=== PATIENT | female | born 1950 | race Caucasian/White ===

== ENCOUNTER → 2018-03-24 | Outpatient (CLI) | payer MEDICARE, OTHER | LOC: M RAD 13:08 | DX: J33.9 Nasal polyp, unspecified (principal); J32.0 Chronic maxillary sinusitis | CPT/HCPCS: 70486 ==

== ENCOUNTER → 2018-06-01 | Outpatient (REF) | payer MEDICARE, OTHER ==
[~2018-06-01] MED LIST: AMLO10TA4 PO; CYCL10TA PO; LISI-538 PO; MULT1TAB10 PO; NORC7.5T35 PO; OMEP20CA3 PO
== END ==
LOC: M SFHCLERA 14:42
PROVIDERS: ATTEND Nurse Practitioner Family
DX: N30.01 Acute cystitis with hematuria (principal)
CPT/HCPCS: 81002; 87088; 87186; G0463

== ENCOUNTER → 2019-10-22 | Outpatient (CLI) | payer MEDICARE, OTHER ==
[~2019-10-22] MED LIST changes: -AMLO10TA4 PO; +AMLO10TA5 PO; +CYCL-707 PO; -CYCL10TA PO; +NORC1TAB8 PO; -NORC7.5T35 PO; +OMEP1CAP73 PO; -OMEP20CA3 PO
== END ==
LOC: M LABSMTC 11:48
PROVIDERS: ATTEND Family Medicine
DX: Z11.59 Encounter for screening for other viral diseases (principal); Z20.828 Contact with and (suspected) exposure to other viral communicable diseases

== ENCOUNTER → 2019-10-25 | Outpatient (REF) | payer MEDICARE, OTHER ==
[2019-10-25 16:46] LABS: HEMATOCRIT 34.5 % (36.0-47.0); HEMOGLOBIN 11.3 g/dl (12.0-15.5); MEAN CORPUSCULAR HEMOGLOBIN 31.7 pg (27.0-33.0); MEAN CORPUSCULAR HGB CONC 32.8 g/dl (32.0-36.5); MEAN CORPUSCULAR VOLUME 96.9 fl (80.0-96.0); PLATELET COUNT, AUTOMATED 222 10^3/uL (150-450); RED BLOOD COUNT 3.56 10^6/uL (4.00-5.40); WHITE BLOOD COUNT 7.4 10^3/uL (4.0-10.0)
[2019-10-25 17:17] LABS: ALBUMIN 3.3 GM/DL (3.2-5.2); BILIRUBIN,TOTAL 0.3 MG/DL (0.2-1.0); CALCIUM LEVEL 8.6 MG/DL (8.8-10.2); CREATININE FOR GFR 1.31 MG/DL (0.55-1.30); GLOMERULAR FILTRATION RATE 43.1 (>45); PERCENT SATURATION 33.2 % (13.2-45.0); POTASSIUM SERUM 4.6 MEQ/L (3.5-5.1); TOTAL PROTEIN 6.2 GM/DL (6.4-8.2)
[2019-10-28 00:06] LABS: Lyme Disease IgG/IgM Antibodie <0.91 ISR (0.00-0.90); Lyme Disease IgM Ab Quantitati <0.80 index (0.00-0.79)
== END ==
LOC: M SFHCLERA 13:09
PROVIDERS: ATTEND Physician Assistant
DX: R42 Dizziness and giddiness (principal); R51 Headache; Z86.2 Personal history of diseases of the blood and blood-forming organs and certain disorders involving the immune mechanism
CPT/HCPCS: 80053; 83550; 85027; 86617; 93005; G0463

== ENCOUNTER → 2020-01-09 | Outpatient (CLI) | payer MEDICARE, OTHER ==
[~2020-01-09] MED LIST changes: -AMLO10TA5 PO; +AMLO1TAB25 PO
[2020-01-09 16:43] LABS: ALBUMIN 3.1 GM/DL (3.2-5.2); BILIRUBIN,TOTAL 0.4 MG/DL (0.2-1.0); CALCIUM LEVEL 8.5 MG/DL (8.8-10.2); CHOLESTEROL RISK RATIO 2.35 (<5); CREATININE FOR GFR 1.49 MG/DL (0.55-1.30); POTASSIUM SERUM 4.2 MEQ/L (3.5-5.1); THYROID STIMULATING HORMONE 1.29 uIU/ML (0.358-3.740); TOTAL PROTEIN 6.2 GM/DL (6.4-8.2)
== END ==
LOC: M LRY 09:44
PROVIDERS: ATTEND Physician Assistant Medical
DX: M79.7 Fibromyalgia (principal); I10 Essential (primary) hypertension

== ENCOUNTER → 2020-05-30 | Outpatient (CLI) | payer SELFPAY | LOC: M LABSMTC 13:18 | PROVIDERS: ATTEND Pediatrics | DX: Z11.59 Encounter for screening for other viral diseases (principal) ==

== ENCOUNTER → 2020-09-26 | Outpatient (CLI) | payer MEDICARE, OTHER ==
[~2020-09-26] MED LIST changes: -LISI-538 PO; +LISI20TA33 PO
[2020-09-26 10:08] LABS: APPEARANCE, URINE CLEAR (CLEAR); BACTERIA, URINE AUTO NEGATIVE (NEGATIVE); BILIRUBIN, URINE AUTO NEGATIVE (NEGATIVE); BLOOD, URINE BLOOD NEGATIVE (NEGATIVE); COLOR, URINE STRAW (YELLOW); GLUCOSE, URINE (UA) AUTO NEGATIVE (NEGATIVE); KETONE, URINE AUTO NEGATIVE (NEGATIVE); LEUKOCYTE ESTERASE, URINE AUTO NEGATIVE (NEGATIVE); MUCUS, URINE SMALL (NEGATIVE); NITRITE, URINE AUTO NEGATIVE (NEGATIVE); PROTEIN, URINE AUTO NEGATIVE (NEGATIVE); RBC, URINE AUTO 0 /HPF (0-3); SPECIFIC GRAVITY URINE AUTO 1.005 (1.002-1.035); SQUAMOUS EPITHELIAL CELL UR AU 0 /HPF (0-6); UROBILINOGEN, URINE AUTO 0.2 mg/dL (0.0-2.0); WBC, URINE AUTO 1 /HPF (0-3)
== END ==
LOC: M LAB 08:45
PROVIDERS: ATTEND Physician Assistant Medical
DX: R32 Unspecified urinary incontinence (principal)

== ENCOUNTER → 2020-10-17 | Outpatient (CLI) | payer MEDICARE, OTHER ==
[2020-10-17 10:16] LABS: ALBUMIN 3.3 GM/DL (3.2-5.2); BILIRUBIN,TOTAL 0.3 MG/DL (0.2-1.0); CALCIUM LEVEL 8.9 MG/DL (8.8-10.2); CHOLESTEROL RISK RATIO 2.059 (<5); CREATININE FOR GFR 1.13 MG/DL (0.55-1.30); POTASSIUM SERUM 4.7 MEQ/L (3.5-5.1); TOTAL PROTEIN 6.1 GM/DL (6.4-8.2)
== END ==
LOC: M LAB 09:05
PROVIDERS: ATTEND Physician Assistant Medical
DX: I10 Essential (primary) hypertension (principal)

== ENCOUNTER → 2020-10-31 | Outpatient (CLI) | payer MEDICARE, OTHER | LOC: M LAB 15:46 | PROVIDERS: ATTEND Physician Assistant Medical | DX: K76.89 Other specified diseases of liver (principal) ==

== ENCOUNTER 2021-05-09 12:34 | Emergency (ER) | payer MEDICARE, OTHER ==
[~2021-05-09] VITALS: Ht 160 cm; Wt 79.4 kg
[2021-05-09] MEDS ORDERED: ROPI2TAB3 PO (12:47)
[2021-05-09] MEDS ORDERED: AMOX500C (12:47)
[2021-05-09] MEDS ORDERED: CELE1CAP7 PO (12:47)
[2021-05-09] MEDS ORDERED: DULO1CAP4 PO (12:47)
--- OUTSIDE RECORDS SUMMARY | 2021-05-09 12:50 | CCD | Continuity of Care Document ---
Author Author Daria EARL [facility] Organization Unknown Address [address] [place] [address] Phone [phone] Care Team Providers Care Workcell Operator Name Role Phone Connie Dominguez MD AUTM [phone] Susie Cortez M.D. AUTM [phone] Problems Active Problems Provider Date Essential hypertension Vilma Grubbs PA Onset: 0 12/21/2019 Fibromyalgia Vilma Grubbs PA Onset: 06/2019 Gastroesophageal reflux disease Vilma Grubbs PA Onset: 12/21/2019 Social History Type Date Description Comments Sex Unknown Tobacco Use Start: Unknown Never Used Smokeless Tobacco ETOH Use Denies alcohol use Tobacco Use Start: Unknown Patient has never smoked Recreational Drug Use Denies Drug Use Smoking Status Reviewed: 12/20/20 Patient has never smoked Exercise Type/Frequency Does not exercise Tattoo/Piercing None Sun Exposure Uses sunscreen Sun Exposure Does not use tanning beds Seat Belt/Car Seat Always uses seat belt Bike Helmet Never Smoke Alarms Yes Smoke Alarms Carbon Monoxide Detector: Yes Allergies, Adverse Reactions, Alerts Description No Known Drug Allergies Medications Active Medications SIG Qnty Indications Ordering Provide r Date Gemtesa 75mg Tablets one p o daily 30tabs N32.81 Kaylee Earl FNP 12/20/2020 Celebrex 100mg Capsules 1 by mouth every day 30caps M54.5 Vilma Grubbs PA Detrol LA 4mg Caps ER 24HR 1 by mouth every day 90caps N32.81 Vilma Grubbs PA 10/2020 Ropinirole HCL 2mg Tablets take 1 tablet by mouth at bedtime 90tabs G25.81 Connie Dominguez M.D. 04/[address] Part take 2 caps by mouth daily 180caps M79.7 Vilma Grubbs PA 06/2019 Lisinopril 20mg Tablets take one tablet by mouth every morning for blood pressure 90tabs Connie Dominguez M.D. Amlodipine Besylate 10mg Tablets take one tablet by mouth every day for blood pressure 90tabs Connie Capps M.D. Omeprazole 20mg Capsules DR 1 by mouth twice daily 180caps Kaylee Earl FNP Cyclobenzaprine HCL 10mg Tablets 1 by mouth three times a day as needed Unknown Immunizations CPT Code Status Date Vaccine Lot # [id number] Given 08/30/2020 Moderna Sars-(Co vid-19) vaccine, mRNA, LNP-S, PF, 100 mcg/ 0.5 mL [id number] Given 12/21/2019 Prevnar 13 For Adults [id number] Vital Signs Date Vital Result Comment 12/20/2020 3:49pm BP Systolic 138 mmHg BP Diastolic 65 mmHg Heart Rate 80 /min Body Temperature 97.1 F Respiratory Rate 18 /min Height 63.50 inches 5'3.50" Weight 172.38 lb O2 % BldC Oximetry 99 % Peak Expiratory Flow Rate 320 Estimated Peak Flow Rate [place] Body Weight 115 lb BMI (Body Mass Index) 30.1 kg/m2 10/10/2020 8:43am BP Systolic 127 mmHg BP Diastolic 60 mmHg Heart Rate 81 /min Body Temperature 97.1 F Respiratory Rate 15 /min Height 63.50 inches 5'3.50" Weight 174.50 lb O2 % BldC Oximetry 99 % Peak Expiratory Flow Rate 321 Estimated Peak Flow Rate [place] Body Weight 115 lb BMI (Body Mass Index) 30.4 kg/m2 Results Test Acquired Date Facility Test Result H/L Range Note Ua Routine 12/20/2020 [facility] [address] [place] [address] [phone] Ua Specific [place] 1.010 Ua PH 5 Ua Color yellow Ua Appera clear Ua WBC neg Ua Protein trace Ua Glucose neg Ua Ketones neg Ua Bilirubin neg Ua Urobilinogen neg Ua Nitrite neg Ua Occult Blood neg Alkaline Phosphatase Isoenzyme 10/31/2020 [facility] [phone] Total Alk Phos 147 IU/L High 39-117 1 Alkaline Phosphatase Iso-Liver 34 % Normal 18-85 Alkaline Phosphatase Iso-Bone 62 % Normal 14-68 Alkaline Phosphatase Iso-Intes 4 % Normal 0-18 2 Comprehensive Metabolic Profil 10/17/2020 [facility] [phone] Glucose, Fasting 96 mg/dL Normal 70-100 Blood Urea Nitrogen 21 mg/dL High 7-18 Creatinine For GFR 1.13 mg/dL Normal 0.55-1.30 Glomerular Filtration Rate 51.0 Normal >45 3 Sodium Level 142 mEq/L Normal 136-145 Potassium Serum 4.7 mEq/L Normal 3.5-5.1 Chloride Level 110 mEq/L High 98-107 Carbon Dioxide Level 27 mEq/L Normal 21-32 Anion Gap 5 mEq/L Low 8-16 Calcium Level 8.9 mg/dL Normal 8.8-10.2 Ast/Sgot 29 U/L Normal 7-37 Alt/SGPT 25 U/L Normal 12-78 Alkaline Phosphatase 140 U/L High 45-117 Bilirubin,Total 0.3 mg/dL Normal 0.2-1.0 Total Protein 6.1 GM/DL Low 6.4-8.2 Albumin 3.3 GM/DL Normal 3.2-5.2 Albumin/Globulin Ratio 1.2 Normal 1.2-2.2 Lipid Panel 10/17/2020 [facility] nter [phone] Triglycerides Level 72 mg/dL Normal <150 Cholesterol Level 173 mg/dL Normal <200 HDL Cholesterol 84 mg/dL Normal >40 LDL Cholesterol 75 mg/dL Normal <100 Non-HDL-C 89 mg/dL Normal Cholesterol Risk Ratio 2.059 Normal <5 1 Please note reference inte rval change 2 Performed at: - [facility] [address] [id number] Measurement Psychologist: Renetta Rodríguez MD, Phone: [phone] Performed at: - [facility] [address] [id number] Measurement Psychologist: Leodan Canales MD, Phone: [phone] Units are mL/min/1.73 m2 Chronic Kidney Disease Staging per NKF: Stage I & II GFR >=60 Normal to Mildly Decreased Stage III GFR 30-59 Moderately Decreased Stage IV GFR 15-29 Severely Decreased Stage V GFR <15 Very Little GFR Left ESRD GFR <15 on [facility] [employer] Procedures Date Code Description Status 01/15/2021 20822 Office/Outpatient Established Lo w MDM 20-29 Min Completed 12/20/2020 51381 Office/Outpatient Established Mo d MDM 30-39 Min Completed Medical Devices Description No Information Available Encounters Type Date Location Provider Dx Diagnosis Office Visit 01/15/2021 11:15a Main Office Kaylee Earl COMMUNITY MARKETING COORDINATOR N32.8 1 Overactive bladder Office Visit 12/20/2020 3:45p Main Office Kaylee Earl, COMMUNITY MARKETING COORDINATOR N32.8 1 Overactive bladder R60.0 Localized edema R35.0 Frequency of micturition Office Visit 10/10/2020 8:45a Main Office Vilma Grubbs PA Z00.00 Encntr for general adult medical exam w/o abnormal findings M79.7 Fibromyalgia G25.81 Restless legs syndrome N39.46 Mixed incontinence I10 Essential (primary) hyperten joanie M54.5 Low back pain Assessments Date Code Description Provider 03/29/2021 R07.89 Other chest pain Kaylee Earl , COMMUNITY MARKETING COORDINATOR 03/29/2021 N32.81 Overactive bladder Pleskach, Mol ly, COMMUNITY MARKETING COORDINATOR 01/15/2021 N32.81 Overactive bladder Pleskach, Mol ly, COMMUNITY MARKETING COORDINATOR 12/20/2020 N32.81 Overactive bladder Pleskach, Mol ly, COMMUNITY MARKETING COORDINATOR 12/20/2020 R60.0 Bilateral lower leg edema Pleska Kaylee reyes, COMMUNITY MARKETING COORDINATOR 12/20/2020 R35.0 Frequency of micturition Plesamanthaac Kaylee waller, COMMUNITY MARKETING COORDINATOR 10/10/2020 Z00.00 Encounter for genera l adult medical examination without abnormal findings Connie Dominguez M.D. 10/10/2020 Z00.00 Encounter for genera l adult medical examination without abnormal findings Vilma Grubbs PA 10/10/2020 M79.7 Fibromyalgia Connie Dominguez M.D. 10/10/2020 M79.7 Fibromyalgia Donald Grubbs cia, PA 10/10/2020 G25.81 Restless legs syndrome Connie Dominguez M.D. 10/10/2020 G25.81 Restless legs syndrome Vilma Hansen PA 10/10/2020 N39.46 Mixed incontinence Rafita Dominguez M.D. 10/10/2020 N39.46 Mixed incontinence Vilma Grubbs PA 10/10/2020 I10 Essential (primary) hypertension Connie Dominguez M.D. 10/10/2020 I10 Essential (primary) hypertension Vilma Grubbs PA 10/10/2020 M54.5 Low back pain Connie Dominguez M.D. 10/10/2020 M54.5 Low back pain Donald Grubbs cia, PA Plan of Treatment Future Appointment(s):* 04/11/2021 1:15 pm - Kaylee Earl FNP at Main Office 03/29/2021 - Kaylee Earl FNP* R07.89 Other chest pain* Comments:* refer for cardiology Patient instructed to go to the ER if the pain recurs * N32.81 Overactive bladder* Comments:* [facility] with [facility] Functional Status Functional Condition Comment Date Status Bifocal glasses Active Independent with all ADL's Activ e Independent with all IADL's Acti ve Mental Status Description No Information Available Referrals Description No Information Available
--- OUTSIDE RECORDS SUMMARY | 2021-05-09 12:50 | CCD | Continuity of Care Document ---
Author Author Daria EARL [facility] Organization Unknown Address [address] [place] [address] Phone [phone] Care Team Providers Care Arch Cushion Press Operator Name Role Phone Connie Dominguez MD AUTM [phone] Susie Cortez M.D. AUTM [phone] [facility] AUTM Problems Active Problems Provider Date Essential hypertension [...] CPT Code Status Date Vaccine Lot # [id number] Given 08/30/2020 Moderna Sars-(Co vid-19) vaccine, mRNA, LNP-S, PF, 100 mcg/ 0.5 mL 55341 Given 12/21/2019 Prevnar 13 For Adults [id number] Vital Signs Date Vital Result Comment 12/20/2020 3:49pm BP Systolic 138 mmHg BP Diastolic 65 mmHg Heart Rate 80 /min Body Temperature 97.1 F Respiratory Rate 18 /min Height 63.50 inches 5'3.50" Weight 172.38 lb O2 % BldC Oximetry 99 % Peak Expiratory Flow Rate 320 Estimated Peak Flow Rate [place] Body Weight 115 lb BMI (Body Mass Index) 30.1 kg/m2 10/10/2020 8:43am BP Systolic 127 mmHg BP Diastolic 60 mmHg Heart Rate 81 /min Body Temperature 97.1 F Respiratory Rate 15 /min Height 63.50 inches 5'3.50" Weight 174.50 lb O2 % BldC Oximetry 99 % Peak Expiratory Flow Rate 321 Estimated Peak Flow Rate [place] Body Weight 115 lb BMI (Body Mass Index) 30.4 kg/m2 Results Test Acquired Date Facility Test Result H/L Range Note Ua Routine 12/20/2020 [facility] [address] [place] [address] [phone] Ua Specific [place] 1.010 Ua PH 5 Ua Color yellow Ua Appera clear Ua WBC neg Ua Protein trace Ua Glucose neg Ua Ketones neg Ua Bilirubin neg Ua Urobilinogen neg Ua Nitrite neg Ua Occult Blood neg Alkaline Phosphatase Isoenzyme 10/31/2020 [facility] [phone] Total Alk Phos 147 IU/L High 39-117 1 Alkaline Phosphatase Iso-Liver 34 % Normal 18-85 Alkaline Phosphatase Iso-Bone 62 % Normal 14-68 Alkaline Phosphatase Iso-Intes 4 % Normal 0-18 2 Comprehensive Metabolic Profil 10/17/2020 [facility] [phone] Glucose, Fasting 96 mg/dL Normal 70-100 Blood [...] Ratio 1.2 Normal 1.2-2.2 Lipid Panel 10/17/2020 [facility] nter [phone] Triglycerides Level 72 mg/dL Normal <150 Cholesterol Level 173 mg/dL Normal <200 HDL Cholesterol 84 mg/dL Normal >40 LDL Cholesterol 75 mg/dL Normal <100 Non-HDL-C 89 mg/dL Normal Cholesterol Risk Ratio 2.059 Normal <5 1 Please note reference inte rval change 2 Performed at: RN - [facility] [address] [id number] Greenhouse Worker: Renetta Rodríguez MD, Phone: [phone] Performed at: - [facility] [id number] Greenhouse Worker: Leodan Canales MD, Phone: [phone] 3 Units are mL/min/1.73 m2 Chronic Kidney Disease Staging per NKF: Stage I & II GFR >=60 Normal to Mildly Decreased Stage III GFR 30-59 Moderately Decreased Stage IV GFR 15-29 Severely Decreased Stage V GFR <15 Very Little GFR Left ESRD GFR <15 on ST[employer]IP[employer] Procedures Date Code Description Status 03/29/2021 86958 Office/Outpatient Established Lo w MDM 20-29 Min Completed 01/15/2021 32976 Office/Outpatient Established Lo w MDM 20-29 Min Completed 12/20/2020 60133 Office/Outpatient Established Mo d MDM 30-39 Min Completed Medical Devices Description No Information Available Encounters Type Date Location Provider Dx Diagnosis Office Visit 03/29/2021 11:30a Main Office Kaylee Earl, COMPLAINT OPERATOR R07.8 9 Other chest pain N32.81 Overactive bladder Office Visit 01/15/2021 11:15a Main Office Pletamy Kayele, COMPLAINT OPERATOR N32.8 1 Overactive bladder Office Visit 12/20/2020 3:45p Main Office Plesamanthaach Kaylee, COMPLAINT OPERATOR N32.8 1 Overactive bladder R60.0 Localized edema R35.0 Frequency of micturition Office Visit 10/10/2020 8:45a Main Office Vilma Grubbs PA Z00.00 Encntr for general adult medical exam w/o abnormal findings M79.7 Fibromyalgia G25.81 Restless legs syndrome N39.46 Mixed incontinence I10 Essential (primary) hyperten joanie M54.5 Low back pain Assessments Date Code Description Provider 03/29/2021 R07.89 Other chest pain Pierce Early , COMPLAINT OPERATOR 03/29/2021 N32.81 Overactive bladder Pleskach, Mol ly, COMPLAINT OPERATOR 01/15/2021 N32.81 Overactive bladder Pleskach, Mol ly, COMPLAINT OPERATOR 12/20/2020 N32.81 Overactive bladder Pleskach, Mol ly, COMPLAINT OPERATOR 12/20/2020 R60.0 Bilateral lower leg edema Plesamanthaa chKaylee, COMPLAINT OPERATOR 12/20/2020 R35.0 Frequency of micturition Kaylee Rose FNP 10/10/2020 Z00.00 Encounter for genera l adult medical examination without abnormal findings Connie Dominguez M.D. 10/10/2020 Z00.00 Encounter for genera l adult medical examination without abnormal findings Vilma Grubbs PA 10/10/2020 M79.7 Fibromyalgia Connie Dominguez M.D. 10/10/2020 M79.7 Fibromyalgia Donald Grubbs cia PA 10/10/2020 G25.81 Restless legs syndrome Connie Domniguez M.D. 10/10/2020 G25.81 Restless legs syndrome Marleneos Vilma corcoran PA 10/10/2020 N39.46 Mixed incontinence Rafita Dominguez M.D. 10/10/2020 N39.46 Mixed incontinence Vilma Grubbs PA 10/10/2020 I10 Essential (primary) hypertension Connie Dominguez M.D. 10/10/2020 I10 Essential (primary) hypertension Vilma Grubbs PA 10/10/2020 M54.5 Low back pain Connie Dominguez M.D. 10/10/2020 M54.5 Low back pain Donald Grubbs cia PA Plan of Treatment Future Appointment(s):* 04/11/2021 1:15 pm - Kaylee Earl FNP at Main Office 03/29/2021 - Kaylee Earl FNP* R07.89 Other chest pain* Comments:* refer for cardiology Patient instructed to go to the ER if the pain recurs * Referral:* [facility] Cardiology/Phys/Osteo * N32.81 Overactive bladder* Comments:* [facility] an appointment with [facility] Functional Status Functional Condition Comment Date Status Bifocal glasses Active Independent with all ADL's Activ e Independent with all IADL's Acti ve Mental Status Description No Information Available Referrals Refer to Reason for Referral Status Appt Date [facility] Please evaluate patient for intermittent chest pain. Thank you. Sent [id number] [facility] [address] [place] [address] [phone]
--- OUTSIDE RECORDS SUMMARY | 2021-05-09 12:51 | CCD ---
Author Author [facility] Organization [facility] Address Unknown Phone Unavailable Care Team Providers Care Clip Baker Name Role Phone Fadi Mc MD Unavailable Unavailable Fadi Mc MD Unavailable Unavailable Fadi Mc MD Unavailable Unavailable Fadi Mc MD Unavailable Unavailable Fadi Mc MD Unavailable Unavailable Fadi Mc MD Unavailable Unavailable Fadi Mc MD Unavailable Unavailable Fadi Mc MD Unavailable Unavailable Fadi Mc MD Unavailable Unavailable Fadi Mc MD Unavailable Unavailable Fadi Mc MD Unavailable Unavailable Fadi Mc MD Unavailable Unavailable Fadi Mc MD Unavailable Unavailable Fadi Mc MD Unavailable Unavailable Fadi Mc MD Unavailable Unavailable Fadi Mc MD Unavailable Unavailable Fadi Mc MD Unavailable Unavailable Fadi Mc MD Unavailable Unavailable Fadi Mc MD Unavailable Unavailable Fadi Mc MD Unavailable Unavailable Fadi Mc MD Unavailable Unavailable Fadi Mc MD Unavailable Unavailable Fadi Mc MD Unavailable Unavailable Fadi Mc MD Unavailable Unavailable Fadi Mc MD Unavailable Unavailable Fdai Mc MD Unavailable Unavailable Fadi Mc MD Unavailable Unavailable Fadi Mc MD Unavailable Unavailable Fadi Mc MD Unavailable Unavailable Fadi Mc MD Unavailable Unavailable Fadi Mc MD Unavailable Unavailable Fadi Mc MD Unavailable Unavailable Fadi Mc MD Unavailable Unavailable Fadi Mc MD Unavailable Unavailable Fadi Mc MD Unavailable Unavailable Fadi Mc MD Unavailable Unavailable Fadi Mc MD Unavailable Unavailable Fadi Mc MD Unavailable Unavailable Fadi Mc MD Unavailable Unavailable Fadi Mc MD Unavailable Unavailable Fadi Mc MD Unavailable Unavailable Fadi Mc MD Unavailable Unavailable Fadi Mc MD Unavailable Unavailable Fadi Mc MD Unavailable Unavailable Fadi Mc MD Unavailable Unavailable Fadi Mc MD Unavailable Unavailable Fadi Mc MD Unavailable Unavailable Fadi Mc MD Unavailable Unavailable Fadi Mc MD Unavailable Unavailable Fadi Mc MD Unavailable Unavailable Fadi Mc MD Unavailable Unavailable Fadi Mc MD Unavailable Unavailable Fadi Mc MD Unavailable Unavailable Fadi Mc MD Unavailable Unavailable Fadi Mc MD Unavailable Unavailable Fadi Mc MD Unavailable Unavailable Fadi Mc MD Unavailable Unavailable Fadi Mc MD Unavailable Unavailable Mc, Fadi Sow MD Unavailable Unavailable Fadi Mc MD Unavailable Unavailable Fadi Mc MD Unavailable Unavailable McFadi MD Unavailable Unavailable Fadi Mc MD Unavailable Unavailable Fadi Mc MD Unavailable Unavailable Alexandro, Fadi Sow MD Unavailable Unavailable Alexandro, Fadi Sow MD Unavailable Unavailable Fadi Mc MD Unavailable Unavailable Alexandro, Fadi Sow MD Unavailable Unavailable Fadi Mc MD Unavailable Unavailable Fadi Mc MD Unavailable Unavailable Alexandro, Fadi Sow MD Unavailable Unavailable Fadi Mc MD Unavailable Unavailable Fadi Mc MD Unavailable Unavailable Alexandro, Fadi Sow MD Unavailable Unavailable Fadi Mc MD Unavailable Unavailable Fadi Mc MD Unavailable Unavailable Fadi Mc MD Unavailable Unavailable Fadi Mc MD Unavailable Unavailable Fadi Mc MD Unavailable Unavailable Fadi Mc MD Unavailable Unavailable Fadi Mc MD Unavailable Unavailable Fadi Mc MD Unavailable Unavailable Fadi Mc MD Unavailable Unavailable Fadi Mc MD Unavailable Unavailable Fadi Mc MD Unavailable Unavailable Fadi Mc MD Unavailable Unavailable Fadi Mc MD Unavailable Unavailable Fadi Mc MD Unavailable Unavailable Fadi Mc MD Unavailable Unavailable Fadi Mc MD Unavailable Unavailable Fadi Mc MD Unavailable Unavailable Fadi Mc MD Unavailable Unavailable Fadi Mc MD Unavailable Unavailable Petrancosta, Hinds Vilma PA-C Unavailable Unavailabl e Petrancosta, Hinds Vilma PA-C Unavailable Unavailabl e Petrancosta, Hinds Vilma PA-C Unavailable Unavailabl e Petrancosta, Hinds Vilma PA-C Unavailable Unavailabl e Petrancosta, Hinds Vilma PA-C Unavailable Unavailabl e Petrancosta, Hinds Vilma PA-C Unavailable Unavailabl e Petrancosta, Hinds Vilma PA-C Unavailable Unavailabl e Petrancosta, Hinds Vilma PA-C Unavailable Unavailabl e Petrancosta, Hinds Vilma PA-C Unavailable Unavailabl e Petrancosta, Hinds Vilma PA-C Unavailable Unavailabl e Petrancosta, Hinds Vilma PA-C Unavailable Unavailabl e Petrancosta, Hinds Vilma PA-C Unavailable Unavailabl e Petrancosta, Hinds Vilma PA-C Unavailable Unavailabl e Petrancosta, Hinds Vilma PA-C Unavailable Unavailabl e Petrancosta, Hinds Vilma PA-C Unavailable Unavailabl e Petrancosta, Hinds Vilma PA-C Unavailable Unavailabl e Petrancosta, Hinds Vilma PA-C Unavailable Unavailabl e Petrancosta, Hinds Vilma PA-C Unavailable Unavailabl e Petrancosta, Hinds Vilma PA-C Unavailable Unavailabl e Petrancosta, Hinds Vilma PA-C Unavailable Unavailabl e Petrancosta, Hinds Vilma PA-C Unavailable Unavailabl e Petrancosta, Hinds Vilma PA-C Unavailable Unavailabl e Petrancosta, Hinds Vilma PA-C Unavailable Unavailabl e Petrancosta, Hinds Vilma PA-C Unavailable Unavailabl e Petrancosta, Hinds Vilma PA-C Unavailable Unavailabl e LETTIERE, A HEAVENLY PA Unavailable Unavailable LETTIERE, A HEAVENLY PA Unavailable Unavailable LETTIERE, A HEAVENLY PA Unavailable Unavailable LETTIERE, A HEAVENLY PA Unavailable Unavailable LETTIERE, A HEAVENLY PA Unavailable Unavailable LETTIERE, A HEAVENLY PA Unavailable Unavailable LETTIERE, A HEAVENLY PA Unavailable Unavailable LETTIERE, A HEAVENLY PA Unavailable Unavailable LETTIERE, A HEAVENLY PA Unavailable Unavailable LETTIERE, A HEAVENLY PA Unavailable Unavailable LETTIERE, A HEAVENLY PA Unavailable Unavailable LETTIERE, A HEAVENLY PA Unavailable Unavailable LETTIERE, A HEAVENLY PA Unavailable Unavailable LETTIERE, A HEAVENLY PA Unavailable Unavailable LETTIERE, A HEAVENLY PA Unavailable Unavailable LETTIERE, A HEAVENLY PA Unavailable Unavailable LETTIERE, A HEAVENLY PA Unavailable Unavailable LETTIERE, A HEAVENLY PA Unavailable Unavailable LETTIERE, A HEAVENLY PA Unavailable Unavailable LETTIERE, A HEAVENLY PA Unavailable Unavailable LETTIERE, A HEAVENLY PA Unavailable Unavailable LETTIERE, A HEAVENLY PA Unavailable Unavailable LETTIERE, A HEAVENLY PA Unavailable Unavailable LETTIERE, A HEAVENLY PA Unavailable Unavailable LETTIERE, A HEAVENLY PA Unavailable Unavailable LETTIERE, A HEAVENLY PA Unavailable Unavailable LETTIERE, A HEAVENLY PA Unavailable Unavailable LETTIERE, A HEAVENLY PA Unavailable Unavailable LETTIERE, A HEAVENLY PA Unavailable Unavailable LETTIERE, A HEAVENLY PA Unavailable Unavailable LETTIERE, A HEAVENLY PA Unavailable Unavailable ARZATE, Sigifredo MCGARRY MD Unavailable Unavailable ARZATE, Sigifredo MCGARRY MD Unavailable Unavailable ARZATE, Sigifredo MCGARRY MD Unavailable Unavailable ARZATE, L ZEFERINO BONE Unavailable Unavailable ARZATE, L ZEFERINO BONE Unavailable Unavailable ARZATE, L ZEFERINO BONE Unavailable Unavailable ARZATE, L ZEFERINO BONE Unavailable Unavailable ARZATE, L ZEFERINO BONE Unavailable Unavailable ARZATE, L ZEFERINO BONE Unavailable Unavailable ARZATE, L ZEFERINO BONE Unavailable Unavailable ARZATE, L ZEFERINO BONE Unavailable Unavailable ARZATE, L ZEFERINO BONE Unavailable Unavailable ARZATE, L ZEFERINO BONE Unavailable Unavailable ARZATE, L ZEFERINO BONE Unavailable Unavailable ARZATE, L ZEFERINO BONE Unavailable Unavailable ARZATE, L ZEFERINO BONE Unavailable Unavailable ARZATE, L ZEFERINO BONE Unavailable Unavailable ARZATE, L ZEFERINO BONE Unavailable Unavailable ARZATE, L ZEFERINO BONE Unavailable Unavailable ARZATE, L ZEFERINO BONE Unavailable Unavailable ARZATE, L ZEFERINO BONE Unavailable Unavailable ARZATE, L ZEFERINO BONE Unavailable Unavailable ARZATE, L ZEFERINO BONE Unavailable Unavailable ARZATE, L ZEFERINO BONE Unavailable Unavailable ARZATE, L ZEFERINO BONE Unavailable Unavailable ARZATE, L ZEFERINO BONE Unavailable Unavailable ARZATE, L ZEFERINO BONE Unavailable Unavailable ARZATE, L ZEFERINO BONE Unavailable Unavailable ARZATE, L ZEFERINO BONE Unavailable Unavailable ARZATE, L ZEFERINO BONE Unavailable Unavailable ARZATE, L ZEFERINO BONE Unavailable Unavailable ARZATE, L ZEFERINO BONE Unavailable Unavailable ARZATE, L ZEFERINO BONE Unavailable Unavailable ARZATE, L ZEFERINO BONE Unavailable Unavailable ARZATE, L ZEFERINO BONE Unavailable Unavailable ARZATE, L ZEFERINO BNOE Unavailable Unavailable ARZATE, L ZEFERINO BONE Unavailable Unavailable ARZATE, L ZEFERINO BONE Unavailable Unavailable ARZATE, L ZEFERINO BONE Unavailable Unavailable ARZATE, L ZEFERINO BONE Unavailable Unavailable ARZATE, L ZEFERINO BONE Unavailable Unavailable ARZATE, L ZEFERINO BONE Unavailable Unavailable ARZATE, L ZEFERINO BONE Unavailable Unavailable ARZATE, L ZEFERINO BONE Unavailable Unavailable ARZATE, L ZEFERINO BONE Unavailable Unavailable Pleskach, Kaylee GLOBAL PROGRAM MANAGER Unavailable Unavailable Pleskach, Kaylee GLOBAL PROGRAM MANAGER Unavailable Unavailable Pleskach, Kaylee GLOBAL PROGRAM MANAGER Unavailable Unavailable Pleskach, Kaylee GLOBAL PROGRAM MANAGER Unavailable Unavailable Pleskach, Kaylee GLOBAL PROGRAM MANAGER Unavailable Unavailable Pleskach, Kaylee GLOBAL PROGRAM MANAGER Unavailable Unavailable Pleskach, Kaylee GLOBAL PROGRAM MANAGER Unavailable Unavailable Pleskach, Kaylee GLOBAL PROGRAM MANAGER Unavailable Unavailable Pleskach, Kaylee GLOBAL PROGRAM MANAGER Unavailable Unavailable Pleskach, Kaylee GLOBAL PROGRAM MANAGER Unavailable Unavailable Pleskach, Kaylee GLOBAL PROGRAM MANAGER Unavailable Unavailable Pleskach, Kaylee GLOBAL PROGRAM MANAGER Unavailable Unavailable Pleskach, Kaylee GLOBAL PROGRAM MANAGER Unavailable Unavailable Pleskach, Kaylee GLOBAL PROGRAM MANAGER Unavailable Unavailable Pleskach, Kaylee GLOBAL PROGRAM MANAGER Unavailable Unavailable Pleskach, Kaylee GLOBAL PROGRAM MANAGER Unavailable Unavailable Pleskach, Kaylee GLOBAL PROGRAM MANAGER Unavailable Unavailable Pleskach, Kaylee GLOBAL PROGRAM MANAGER Unavailable Unavailable Pleskach, Kaylee GLOBAL PROGRAM MANAGER Unavailable Unavailable Pleskach, Kaylee GLOBAL PROGRAM MANAGER Unavailable Unavailable Pleskach, Kaylee GLOBAL PROGRAM MANAGER Unavailable Unavailable Pleskach, Kaylee GLOBAL PROGRAM MANAGER Unavailable Unavailable Pleskach, Kaylee GLOBAL PROGRAM MANAGER Unavailable Unavailable Pleskach, Kaylee GLOBAL PROGRAM MANAGER Unavailable Unavailable Pleskach, Kaylee GLOBAL PROGRAM MANAGER Unavailable Unavailable Pleskach, Kaylee GLOBAL PROGRAM MANAGER Unavailable Unavailable Pleskach, Kaylee GLOBAL PROGRAM MANAGER Unavailable Unavailable Pleskach, Kaylee GLOBAL PROGRAM MANAGER Unavailable Unavailable Pleskach, Kaylee GLOBAL PROGRAM MANAGER Unavailable Unavailable Pleskach, Kaylee GLOBAL PROGRAM MANAGER Unavailable Unavailable Pleskach, Kaylee GLOBAL PROGRAM MANAGER Unavailable Unavailable Pleskach, Kaylee GLOBAL PROGRAM MANAGER Unavailable Unavailable Pleskach, Kaylee GLOBAL PROGRAM MANAGER Unavailable Unavailable Pleskach, Kaylee GLOBAL PROGRAM MANAGER Unavailable Unavailable Pleskach, Kaylee GLOBAL PROGRAM MANAGER Unavailable Unavailable Pleskach, Kaylee GLOBAL PROGRAM MANAGER Unavailable Unavailable Pleskach, Kaylee GLOBAL PROGRAM MANAGER Unavailable Unavailable Pleskach, Kaylee GLOBAL PROGRAM MANAGER Unavailable Unavailable Pleskach, Kaylee GLOBAL PROGRAM MANAGER Unavailable Unavailable Pleskach, Kaylee GLOBAL PROGRAM MANAGER Unavailable Unavailable Pleskach, Kaylee GLOBAL PROGRAM MANAGER Unavailable Unavailable Pleskach, Kaylee GLOBAL PROGRAM MANAGER Unavailable Unavailable Pleskach, Kaylee GLOBAL PROGRAM MANAGER Unavailable Unavailable Pleskach, Kaylee GLOBAL PROGRAM MANAGER Unavailable Unavailable Re-disclosure Warning The records that you are about to access may contain information from federally-assisted alcohol or drug abuse programs. If such information is present, then the following federally mandated warning applies: This information has been disclosed to you from records protected by federal confidentiality rules (42 CFR part 2). The federal rules prohibit you from making any further disclosure of this information unless further disclosure is expressly permitted by the written consent of the person to whom it pertains or as otherwise permitted by 42 CFR part 2. A general authorization for the release of medical or other information is NOT sufficient for this purpose. The Federal rules restrict any use of the information to criminally investigate or prosecute any alcohol or drug abuse patient.The records that you are about to access may contain highly sensitive health information, the redisclosure of which is protected by Article 27-F of the [facility] Public Health law. If you continue you may have access to information: Regarding HIV / AIDS; Provided by facilities licensed or operated by the [facility] Office of Mental Health; or Provided by the [facility] Office for People With Developmental Disabilities. If such information is present, then the following [facility] mandated warning applies: This information has been disclosed to you from confidential records which are protected by state law. State law prohibits you from making any further disclosure of this information without the specific written consent of the person to whom it pertains, or as otherwise permitted by law. Any unauthorized further disclosure in violation of state law may result in a fine or nursing home sentence or both. A general authorization for the release of medical or other information is NOT sufficient authorization for further disc losure. Allergies and Adverse Reactions Type Description Substance Reaction Status Data Source(s ) Allergy to substance Allergy to substance Allergy to substance [facility] ([facility]) Allergy to substance Allergy to substance Allergy to substance [facility] ([facility]) Family History Family Member Name Family Member Gender Family Member Status Date o f Status Description Data Source(s) Unknown Unknown Problem [facility] Unknown Unknown Problem [facility] ([facility]) father,pgf Encounters Encounter Providers Location Date Indications Data Source(s ) Outpatient Attender: Kaylee Earl [facility] Main Office 03/29/2021 1 1:30:00 AM EDT MED[facility] ([facility] Outpatient Attender: Kaylee Earl [facility] Main Office 01/15/2021 1 1:15:00 AM EDT MED[facility] ([facility] Outpatient Attender: Kaylee Earl [facility] Main Office 12/20/2020 0 3:45:00 PM EDT [facility] ([facility] Juanjose Mc MD: [address] [place] [address] [phone], Ph. 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 Attender: Juanjose Mc MD [facility] Medical 08/30/2020 12:00:00 AM EST [facility] ([facility]) Juanjose Mc MD: [address] [place] [address] [phone], Ph. Attender: Juanjose Mc MD [facility] Medical 08/30/2020 12:00:00 AM EST [place] ([facility]) Outpatient Attender: Vilma Grubbs PA-C Main Office 08/20/2020 12:45:00 PM EST [facility] ([facility] Outpatient Attender: Vilma Grubbs PA-C Main Office 08/02/2020 01:30:00 PM EST [facility] ([facility] Outpatient Attender: HEAVENLY baker 07/31/2020 02:20:00 PM EST [facility] ([facility]) Outpatient Attender: Kaylee Earl [facility] Main Office 07/31/2020 1 2:45:00 PM EST [facility] ([facility] Outpatient Attender: Vilma Grubbs PA-C Main Office 05/14/2020 01:00:00 PM EST [facility] ([facility] Immunizations Vaccine Date Status Description Data Source(s) COVID-19, mRNA, LNP-S, PF, 100 mcg/0.5 mL dose 11/02/2020 08 :50:46 AM EDT completed .5 mL [facility] ([facility]) COVID-19 VACCINE Moderna 11/02/2020 12:00:00 AM EDT completed NYSIIS Vaccine Series Complete: YESThis Data wa s Submitted to [facility] Via [employer]. COVID-19, mRNA, LNP-S, PF, 100 mcg/0.5 mL dose 08/30/2020 02 :32:33 PM EST completed .5 mL [facility] ([facility]) COVID-19, mRNA, LNP-S, PF, 100 mcg/0.5 mL dose 08/30/2020 02 :32:33 PM EST completed .5 mL [facility] ([facility]) COVID-19 VACCINE Moderna 08/30/2020 12:00:00 AM EST completed [facility] Vaccine Series Complete: NOThis Data was Submitted to [facility] Via [employer]. Moderna Sars-(Covid-19) vaccine, mRNA, LNP-S, PF, 100 mcg/ 0.5 mL 08/29/2020 11:00:00 PM EST completed [facility] ([facility] Medications Medication Brand Name Start Date Product Form Dose Route Admi nistrative Instructions Pharmacy Instructions Status Indications Reaction Description Data Source(s) 0.12 % 04/29/2021 12:00:00 AM EST mouthwash 473 USE 10CC BY MOUTH TO RINSE AND SPIT FOUR TIMES A DAY STARTING TOMORROW USE 10CC BY MOUTH TO RINSE AND SPIT FOUR TIMES A DAY STARTING TOMORROW SOLD: 04/29/2021 [facility] 800 mg 04/29/2021 12:00:00 AM EST tablet 15 TAKE ONE TABLET BY MOUTH THREE TIMES A DAY NEEDED TAKE ONE TABLET BY MOUTH THREE TIMES A DAY NEEDED S OLD: 04/29/2021 [facility] 500 mg 04/29/2021 12:00:00 AM EST capsule 21 TAKE ONE CAPSULE BY MOUTH EVERY 8 HOURS UNTIL ALL GONE TAKE ONE CAPSULE BY MOUTH EVERY 8 HOURS UNTIL ALL GONE SOLD: 04/29/2021 [facility] Acetaminophen 325 MG / Hydrocodone Bitartrate 5 MG Ora l Tablet 5-325 mg HYDROCODONE/ACETAMINOPHEN 04/29/2021 12:00:00 AM EST tablet 12 TAKE ONE TABLET BY MOUTH EVERY 4 TO 6 HOURS NEEDED FOR PAIN MAXIMUM DAILY DOSE = 4 TAKE ONE TABLET BY MOUTH EVERY 4 TO 6 HOURS NEEDED FOR PAIN MAXIMUM DAILY DOSE = 4 SOLD: 04/29/2021 [facility] 75 mg 12/21/2020 12:00:00 AM EDT tablet 30 TAKE ONE TABLET BY MOUTH EVERY DAY TAKE ONE TABLET BY MOUTH EVERY DAY SOLD: 12/22/2020 [facility] Gemtesa Gemtesa 12/20/2020 12:00:00 AM EDT ORAL active [facility] ([facility] 800 mg 11/07/2020 12:00:00 AM EDT tablet 9 TAKE ONE TABLET BY MOUTH THREE TIMES A DAY NEEDED TAKE ONE TABLET BY MOUTH THREE TIMES A DAY NEEDED S OLD: 11/08/2020 [facility] 500 mg 11/07/2020 12:00:00 AM EDT capsule 15 TAKE ONE CAPSULE BY MOUTH EVERY 8 HOURS UNTIL ALL ARE TAKEN TAKE ONE CAPSULE BY MOUTH EVERY 8 HOURS UNTIL ALL ARE TAKEN SOLD: 11/08/2020 [facility] Acetaminophen 325 MG / Hydrocodone Bitartrate 5 MG Ora l Tablet 5-325 mg HYDROCODONE/ACETAMINOPHEN 11/07/2020 12:00:00 AM EDT tablet 8 TAKE ONE TABLET BY MOUTH EVERY 4 TO 6 HOURS NEEDED FOR PAIN, MAXIMUM DAILY DOSE =4 TAKE ONE TABLET BY MOUTH EVERY 4 TO 6 HOURS NEEDED FOR PAIN, MAXIMUM DAILY DOSE =4 SOLD: 11/08/2020 [facility] 0.12 % 11/07/2020 12:00:00 AM EDT mouthwash 473 STARTING TOMORROW RINSE AND SPIT 10 ML BY MOUTH FOUR TIMES A DAY STARTING TOMORROW RINSE AND SPIT 10 ML B Y MOUTH FOUR TIMES A DAY SOLD: 11/08/2020 [facility] 100 mg 10/10/2020 12:00:00 AM EDT capsule 30 TAKE ONE CAPSULE BY MOUTH EVERY DAY TAKE ONE CAPSULE BY MOUTH EVERY DAY SOLD: 10/10/2020 [facility] celecoxib 100 MG Oral Capsule [Celebrex] Celebrex 10/10/2020 12 :00:00 AM EDT ORAL active [facility] ([facility] 24 HR tolterodine tartrate 4 MG Extended Release Oral Capsule [Detrol] Detrol LA 09/24/2020 12:00:00 AM EDT ORAL active [facility] ([facility] 20 mg 09/03/2020 12:00:00 AM EDT tablet 90 TAKE ONE TABLET BY MOUTH EVERY MORNING TAKE ONE TABLET BY MOUTH EVERY MORNING SOLD: 09/13/2020 [facility] 10 mg 09/03/2020 12:00:00 AM EDT tablet 90 TAKE ONE TABLET BY MOUTH EVERY DAY TAKE ONE TABLET BY MOUTH EVERY DAY SOLD: 09/13/2020 [facility] Medrol Medrol 08/20/2020 12:00:00 AM EST completed [facility] ([facility] 4 mg 08/20/2020 12:00:00 AM EST tablets,dose pack 21 TAKE EACH DAYS TABLETS AT ONCE IN THE MORNING WITH FOOD TAKE EACH DAYS TABLETS AT ONCE IN THE MO RNING WITH FOOD SOLD: 08/21/2020 [facility] 500 mg 08/03/2020 12:00:00 AM EST capsule 15 TAKE ONE CAPSULE BY MOUTH EVERY 8 HOURS UNTIL GONE TAKE ONE CAPSULE BY MOUTH EVERY 8 HOURS UNTIL GONE SORAIDA [facility] 800 mg 08/03/2020 12:00:00 AM EST tablet 9 TAKE ONE TABLET BY MOUTH THREE TIMES A DAY NEEDED TAKE ONE TABLET BY MOUTH THREE TIMES A DAY NEEDED S OLD: 08/07/2020 [facility] ropinirole 2 MG Oral Tablet Ropinirole HCL 08/02/2020 12:00:00 AM EST ORAL active [facility] ([facility] 2 mg 08/02/2020 12:00:00 AM EST tablet 7 TAKE ONE TABLET BY MOUTH AT BEDTIME TAKE ONE TABLET BY MOUTH AT BEDTIME SOLD: 08/07/2020 [facility] 875 mg 08/01/2020 12:00:00 AM EST tablet 20 TAKE ONE TABLET BY MOUTH EVERY 12 HOURS FOR 10 DAYS TAKE ONE TABLET BY MOUTH EVERY 12 HOURS FOR 10 DAYS SO LD: 08/01/2020 [facility] Amoxicillin 875 MG Oral Tablet Amoxicillin 07/31/2020 12:00:00 AM EST active [facility] ([facility]) 1 mg 05/14/2020 12:00:00 AM EST tablet 90 TAKE ONE TABLET BY MOUTH AT BEDTIME TAKE ONE TABLET BY MOUTH AT BEDTIME SOLD: 05/18/2020 [facility] ropinirole 1 MG Oral Tablet Ropinirole HCL 05/14/2020 12:00:00 AM EST ORAL completed [facility] ([facility] 2 mg 04/20/2020 12:00:00 AM EDT capsule,extended releas e 24hr 90 TAKE ONE CAPSULE BY MOUTH EVERY DAY TAKE ONE CAPSULE BY MOUTH EVERY DAY SOLD: 04/21/2020 [facility] 2 mg 04/19/2020 12:00:00 AM EDT tablet 30 TAKE ONE TABLET BY MOUTH TWICE A DAY NEEDED FOR MUSCLE SPASM MAXIMUM DAILY DOSE = 2 TAKE ONE TABLET BY MOUTH TWICE A DAY NEEDED FOR MUSCLE SPASM MAXIMUM DAILY DOSE = 2 SOLD: 04/21/2020 [facility] 2 mg 03/07/2020 12:00:00 AM EDT tablet 30 TAKE ONE TABLET BY MOUTH TWICE A DAY NEEDED FOR MUSCLE SPASM MAXIMUM DAILY DOSE = 2 TAKE ONE TABLET BY MOUTH TWICE A DAY NEEDED FOR MUSCLE SPASM MAXIMUM DAILY DOSE = 2 SOLD: 03/10/2020 [facility] Insurance Providers Payer name Policy type / Coverage type Policy ID Covered republican ID Covered republican's relationship to estes Policy Estes Plan Information Medicare Natl Gov't Servi Medicare Primary [id number] Self [id number] MCRB [id number] S [id number] A MEDICARE [id number] S [id number] A SELF PAY ONLY [id number] [facility] [id number] S [id number] MEDICARE [id number] S [id number] ANSI-Commercial [id number] ANSI-Medicare Part B [id number] ANSI-Medicare Part B [id number] ANSI-Commercial [id number] ANSI-Commercial [id number] ANSI-Medicare Part B [id number] [place] Medicare Primary [id number] Self [id number] [facility] OPTIONS [id number] SP [id number] MEDICARE [id number] SP [id number] A [place] Medicare Primary [id number] Self [id number] [facility] [id number] 18 [id number] [facility] [id number] 18 [id number] MEDICARE -O/P [id number] [facility] [id number] 18 [id number] [facility] [id number] 18 [id number] MEDICARE -CLINIC [id number] 18 [id number]/P [id number] 18 [id number] -O/P [id number] [facility] HEALTH CARE OPTIONS -CLINIC [id number] PROGRAM [id number] S [id number] [facility] HEALTH CARE OPTIONS -O/P [id number] 18 [id number] MEDICARE -PHYSICIAN [id number] 18 [id number] [facility] -PHYSICIAN [id number] [facility] OFFICE OF COMMUNITY CARE [id number] SP [id number] A MEDICARE [id number] SP [id number] [facility] [id number] [place] [id number] Problems, Conditions, and Diagnoses No Information Surgeries/Procedures Procedure Description Date Indications Data Source(s) OFFICE OUTPATIENT VISIT 15 MINUTES 03/29/2021 12:00:00 AM EDT [facility] ([facility] OFFICE OUTPATIENT VISIT 15 MINUTES 01/15/2021 12:00:00 AM EDT [facility] ([facility] OFFICE OUTPATIENT VISIT 25 MINUTES 12/20/2020 12:00:00 AM EDT [facility] ([facility] OFFICE OUTPATIENT VISIT 15 MINUTES 09/24/2020 12:00:00 AM EDT [facility] ([facility] OFFICE OUTPATIENT VISIT 15 MINUTES 08/20/2020 12:00:00 AM EST [facility] ([facility] OFFICE OUTPATIENT VISIT 15 MINUTES 08/02/2020 12:00:00 AM EST [facility] ([facility] OFFICE OUTPATIENT VISIT 15 MINUTES 07/31/2020 12:00:00 AM EST [facility] ([facility] Results ID Date Data Source [id number] 12/20/2020 03:57:00 PM EDT [facility] ([facility] Name Value Range Interpretation Code Description Data Carmita rce(s) Supporting Document(s) Specific gravity of Urine 1.010 [facility] ([facility] pH of Urine by Test strip 5 [facility] ([facility] Color of Urine Laboratory test result [facility] ([facility] Appearance of Urine Laboratory test result [facility] ([facility] Leukocytes [#/area] in Urine sediment by Microscopy hi gh power field Laboratory test result [facility] ([facility] Protein [Presence] in Urine by Test strip Laboratory test result [facility] ([facility] Glucose [Presence] in Urine Laboratory test result [facility] ([facility] Bilirubin.total [Presence] in Urine by Test strip Laboratory test res ult [facility] ([facility] Ketones [Presence] in Urine by Test strip Laboratory test result [facility] ([facility] Nitrite [Presence] in Urine by Test strip Laboratory test result [facility] ([facility] Hemoglobin [Presence] in Urine by Test strip Laboratory test result [facility] ([facility] Urobilinogen [Mass/volume] in Urine by Test strip Laboratory test res ult [facility] ([facility] ID Date Data Source [id number] 10/31/2020 03:55:00 PM EDT [facility] ([facility] Name Value Range Interpretation Code Description Data Carmita rce(s) Supporting Document(s) Laboratory test finding (navigational concept) 147 IU/L 39-117 [facility] ([facility] Please note reference interval change* * Laboratory test finding (navigational concept) 34 % 18-85 [facility] ([facility] Laboratory test finding (navigational concept) 62 % 14-68 [facility] ([facility] Laboratory test finding (navigational concept) 4 % 0-18 [facility] ([facility] Performed at: - [facility] [address] [id number] [employer] Set Up Operator: Renetta Rodríguez MD, Phone: [phone] Performed at: [facility] [address] [id number] [employer] Machine Set Up Operator: Leodan Canales MD, Phone: [phone] ID Date Data Source [id number] 10/17/2020 09:11:00 AM EDT [facility] ([facility] Name Value Range Interpretation Code Description Data Carmita rce(s) Supporting Document(s) Cholesterol Level 173 mg/dL [facility] ([facility] Triglycerides Level 72 mg/dL [facility] ([facility] LDL Cholesterol 75 mg/dL [facility] ([facility] HDL Cholesterol 84 mg/dL [facility] ([facility] Non-HDL-C 89 mg/dL [facility] ([facility] Cholesterol Risk Ratio 2.059 [facility] ([facility] ID Date Data Source [id number] 10/17/2020 09:11:00 AM EDT [facility] ([facility] Name Value Range Interpretation Code Description Data Carmita rce(s) Supporting Document(s) Blood Urea Nitrogen 21 mg/dL 7-18 [facility] ([facility] Glucose, Fasting 96 mg/dL 70-100 [facility] ([facility] Glomerular Filtration Rate 51.0 [facility] ([facility] <content>Units are mL/min/1.73 m2</content>
<content></content>
<content>Chronic Kidney Disease Staging per NK[facility]:</content>
<content></content>
<content>Stage I & II GFR >=60 Normal to Mildly Decreased</content>
<content>Stage III GFR 30- 59 Moderately Decreased</content>
<content>Stage IV GFR 15-29 Severely Decreased</content>
<content>Stage V GFR <15 Very Little GFR Left</content>
<content>ESRD GFR <15 on ASSISTANT DIRECTOR</content>
<content></content> Sodium Level 142 meq/L 136-145 [facility] Creatinine For GFR 1.13 mg/dL 0.55-1.30 [facility] ([facility] Chloride Level 110 meq/L 98-107 [facility] Carbon Dioxide Level 27 meq/L 21-32 [facility] ([facility] Potassium Serum 4.7 meq/L 3.5-5.1 [facility] ([facility] Ast/Sgot 29 U/L 7-37 [facility] ([facility] Calcium Level 8.9 mg/dL 8.8-10.2 [facility] ([facility] Anion Gap 5 meq/L 8-16 [facility] Alkaline Phosphatase 140 U/L 45-117 [facility] ([facility] Alt/SGPT 25 U/L 12-78 [facility] ([facility] Bilirubin,Total 0.3 mg/dL 0.2-1.0 [facility] ([facility] Albumin/Globulin Ratio 1.2 1.2-2.2 [facility] ([facility] Total Protein 6.1 GM/DL 6.4-8.2 [facility] ([facility] Albumin 3.3 GM/DL 3.2-5.2 [facility] ID Date Data Source [id number] 09/26/2020 08:59:00 AM EDT [facility] ([facility] Name Value Range Interpretation Code Description Data Carmita rce(s) Supporting Document(s) Bacteria identified in Urine by Culture Laboratory test result [facility] ([facility] <content>FULL REPORT IN LAB NOTES ([facility] a nd [facility]).</content>
<content></content>
<content>ORGANISM 1: KLEBSIELLA PNEUMONIAE</content>
<content></content>
<content>COLONY COUNT 25,000</content>
<content></content>
<content></content>
<content>OR GANISM 1: KLEBSIELLA PNEUMONIAE</content>
<content></content>
<content> KLEBSIELLA PNEUMONIAE: REACTION</content>
<content>TRIMETHOPRIM/SULFAMETHOXAZOLE IV 160mg TMP & 800mg SMXq6h <=20 S</content>
<content> TRIMETHOPRIM/SULFAMETHOXAZOLE PO Bactrim DS Bid <=20 S</content>
<content>AMPICILLIN IV 500mg q6h >=32 R</content>
<content>AMPICILLIN PO 500mg q6h fasting >=32 R</content>
<content>GENTAMICIN IV 80mg q8h <=1 S</content>
<content>NITROFURANTOIN PO 100mg BID 64 I</content>
<content>CEFAZOLIN IV 1gm q8h <=4 S</content>
<content>LEVOFLOXACIN IV 500mg qd <=0.12 S</content>
<content>LEVOFLOXACIN PO 250mg qd <=0.12 S</content>
<content>LEVOFLOXACIN PO 500mg qd <=0.12 S</content>
<content>TOBRAMYCIN IV 80mg q8h <=1 S</content>
<content> CEFTRIAXONE IV 1gm q24h <=1 S</content>
<content>CEFTAZIDIME IV 1gm q8h <=1 S</content>
<content>AMPICILLIN/SULBACTAM IV 1.5g q6h >=32 R</content>
<content>PIPERACILLIN/TAZOBACTAM IV 2.25 gm q6h 8 S</content>
<content>AZTREONAM IV 1gm q8h <=1 S</content>
<content>ERTAPENEM IV 1gm qd <=0.5 S</content>
<content> MEROPENEM IV 1 gm q8h <=0.25 S</content>
<content>MEROPENEM IV 500 mg q8h <=0.25 S</content>
<content>TIGECYCLINE IV 50mg q12h 4 I</content>
<content>CEFEPIME IV 1 gm q12h <=1 S</content>
<content>CEFEPIME IV 2 gm q12h <=1 S</content>
<content>EXTD BRD SPCTRM BETA LACTAMASE IV NEGATIVE FOR ESBL</content>
<content></content> ID Date Data Source [id number] 09/26/2020 08:59:00 AM EDT [facility] ([facility] Name Value Range Interpretation Code Description Data Carmita rce(s) Supporting Document(s) Color, Urine Laboratory test result [facility] ([facility] Appearance, Urine Laboratory test result [facility] ([facility] PH,Urine 5.0 units 5.0-9.0 [facility] Specific [place] Urine Auto 1.005 1.002-1.035 [facility] ([facility] Glucose, Urine (Ua) Auto Laboratory test result [facility] ([facility] Protein, Urine Auto Laboratory test result [facility] ([facility] Ketone, Urine Auto Laboratory test result [facility] ([facility] Bilirubin, Urine Auto Laboratory test result [facility] ([facility] Urobilinogen, Urine Auto 0.2 mg/dL 0.0-2.0 [facility] ([facility] Leukocyte Esterase, Urine Auto Laboratory test result [facility] ([facility] Nitrite, Urine Auto Laboratory test result [facility] ([facility] RBC, Urine Auto 0 /HPF 0-3 [facility] ([facility] WBC, Urine Auto 1 /HPF 0-3 [facility] ([facility] Blood, Urine Blood Laboratory test result [facility] ([facility] Bacteria, Urine Auto Laboratory test result [facility] ([facility] Squamous Epithelial Cell Ur AU 0 /HPF 0-6 [facility] ([facility] Mucus, Urine Laboratory test result [facility] ([facility] Hyaline Cast, Urine Auto 0 /LPF 0-1 [facility] T ([facility] ID Date Data Source [id number] 07/31/2020 12:00:00 AM EST [facility] Name Value Range Interpretation Code Description Data Carmita rce(s) Supporting Document(s) SARS-CoV2 Rapid Antigen Negative [facility] This lab was reported by [facility]. ID Date Data Source [id number] 05/30/2020 12:00:00 AM EST [facility] Name Value Range Interpretation Code Description Data Carmita rce(s) Supporting Document(s) 2019-nCoV RNA XXX [facility] by [facility] and reported by [facility]. Procedure Social History Code Duration Value Status Description Data Source(s ) Smoking 12/20/2020 12:00:00 AM EDT Patient has never smoked co mpleted Patient has never smoked [facility] ([facility] Smoking 10/15/2020 12:00:00 AM EDT Never Smoked Cigarettes com pleted Never Smoked Cigarettes [facility] ([facility]) Smoking 07/31/2020 12:00:00 AM EST Patient has never smoked co mpleted Patient has never smoked [facility] ([facility], [facility]) Vital Signs ID Date Data Source UNK Name Value Range Interpretation Code Description Data Source(s) Heart rate 80 /min 80 /min [facility] ([facility] Body temperature 97.1 [degF] 97.1 [degF] [facility] Diastolic blood pressure 65 mm[Hg] 65 mm[Hg] [facility] ([facility] Systolic blood pressure 138 mm[Hg] 138 mm[Hg] M [facility] ([facility] Respiratory rate 18 /min 18 /min [facility] ( [facility] Body height 63.50 [in_i] 63.50 [in_i] [facility] ([facility] 5'3.50" Body weight 172.38 [lb_av] 172.38 [lb_av] [facility] T ([facility] Oxygen saturation in Arterial blood by Pulse oximetry 99 % 99 % [facility] ([facility] [place] body weight 115 [lb_av] 115 [lb_av] [facility] ([facility] Body mass index (BMI) [Ratio] 30.1 kg/m2 30.1 k g/m2 [facility] ([facility] Systolic blood pressure 124 mm[Hg] 124 mm[Hg] M [facility] ([facility]) Diastolic blood pressure 62 mm[Hg] 62 mm[Hg] [facility] ([facility]) Body height 62.75 [in_i] 62.75 [in_i] [facility] ([facility]) 5'2.75" Body weight 172.00 [lb_av] 172.00 [lb_av] [facility] T ([facility]) Body mass index (BMI) [Ratio] 30.7 kg/m2 30.7 k g/m2 [facility] ([facility]) Body surface area Derived from formula 1.81 m2 1.81 m2 [facility] ([facility]) Heart rate 81 /min 81 /min [facility] ([facility] Systolic blood pressure 127 mm[Hg] 127 mm[Hg] M [facility] ([facility] Body temperature 97.1 [degF] 97.1 [degF] [facility] ([facility] Diastolic blood pressure 60 mm[Hg] 60 mm[Hg] [facility] Oxygen saturation in Arterial blood by Pulse oximetry 99 % 99 % [facility] ([facility] Body height 63.50 [in_i] 63.50 [in_i] [facility] ([facility] 5'3.50" Body weight 174.50 [lb_av] 174.50 [lb_av] [facility] ([facility] Respiratory rate 15 /min 15 /min [facility] ( [facility] [place] body weight 115 [lb_av] 115 [lb_av] [facility] ([facility] Body mass index (BMI) [Ratio] 30.4 kg/m2 30.4 k g/m2 [facility] ([facility] Systolic blood pressure 113 mm[Hg] 113 mm[facility]Hg] [facility] Diastolic blood pressure 73 mm[Hg] 73 mm[Hg] [facility] Heart rate 87 /min 87 /min [facility] ([facility], [facility]) Respiratory rate 14 /min 14 /min [facility] Oxygen saturation in Arterial blood by Pulse oximetry 96 % 96 % [facility] ([facility]) Body temperature 98.4 [degF] 98.4 [degF] [facility] ([facility]) Body weight 167.00 [lb_av] 167.00 [lb_av] [facility] T ([facility]) Body height 64 [in_i] 64 [in_i] [facility] ([facility]) 5'4" Body mass index (BMI) [Ratio] 28.7 kg/m2 28.7 k g/m2 [facility] ([facility]) [place] body weight 115 [lb_av] 115 [lb_av] [facility] ([facility] Systolic blood pressure 103 mm[Hg] 103 mm[Hg] M [facility] ([facility] Body mass index (BMI) [Ratio] 30.4 kg/m2 30.4 k g/m2 [facility] ([facility] Body weight 171.75 [lb_av] 171.75 [lb_av] [facility] ([facility] Oxygen saturation in Arterial blood by Pulse oximetry 98 % 98 % [facility] ([facility] Body temperature 97.4 [degF] 97.4 [degF] [facility] ([facility] Respiratory rate 16 /min 16 /min [facility] ( [facility] Body height 63 [in_i] 63 [in_i] [facility] ([facility] 5'3" Diastolic blood pressure 73 mm[Hg] 73 mm[Hg] [facility] Heart rate 82 /min 82 /min [facility] ([facility]
[2021-05-09] MEDS ORDERED: ASPIRIN 81 MG CHEW TABLET PO ONE (13:00)
--- NOTE | 2021-05-09 13:11 | REP ---
INDICATION: CHEST PAIN. COMPARISON: 06/01/2007 TECHNIQUE: PA and lateral FINDINGS: The superior mediastinal structures are midline. The cardiac silhouette is unremarkable in size, shape, and position. The diaphragmatic surfaces of the lungs are regular, and the costophrenic angles are clear. The pulmonary bridges are clear. The imaged osseous structures are intact. IMPRESSION: There is no acute cardiopulmonary disease. <Electronically signed by Brandon Del Cid > 05/09/21 [id number]
[2021-05-09 14:52] LABS: BASO # 0.1 10^3/uL (0.0-0.2); BASO % 0.8 % (0.0-1.0); EOS # 0.2 10^3/uL (0.0-0.5); EOS % 3.3 % (0.0-3.0); HEMATOCRIT 31.9 % (36.0-47.0); HEMOGLOBIN 9.8 g/dl (12.0-15.5); LYMPH # 1.4 10^3/uL (1.5-5.0); LYMPH % 23.2 % (24.0-44.0); MEAN CORPUSCULAR HGB CONC 30.7 g/dl (32.0-36.5); MEAN CORPUSCULAR VOLUME 91.1 fl (80.0-96.0); MONO # 0.5 10^3/uL (0.0-0.8); MONO % 8.7 % (2.0-8.0); NEUTROPHILS # 3.8 10^3/uL (1.5-8.5); NEUTROPHILS % 63.5 % (36.0-66.0); PLATELET COUNT, AUTOMATED 226 10^3/uL (150-450)
--- OUTSIDE RECORDS SUMMARY | 2021-05-09 14:53 | CCD ---
Author Author [facility] Organization [facility] Address Unknown Phone Unavailable Care Team Providers Care Adoption Coordinator Name Role Phone Fadi Mc MD Unavailable [...] Unavailable Unavailable Fadi Mc MD Unavailable Unavailable Faid Mc MD Unavailable Unavailable Fadi Mc MD [...] Unavailable Fadi Mc MD Unavailable Unavailable Petrancosta, Kossuth Vilma PA-C Unavailable Unavailabl e Petrancosta, Kossuth Vilma PA-C Unavailable Unavailabl e Petrancosta, Kossuth Vilma PA-C Unavailable Unavailabl e Petrancosta, Kossuth Vilma PA-C Unavailable Unavailabl e Petrancosta, Kossuth Vilma PA-C Unavailable Unavailabl e Petrancosta, Kossuth Vilma PA-C Unavailable Unavailabl e Petrancosta, Kossuth Vilma PA-C Unavailable Unavailabl e Petrancosta, Kossuth Vilma PA-C Unavailable Unavailabl e Petrancosta, Kossuth Vilma PA-C Unavailable Unavailabl e Petrancosta, Kossuth Vilma PA-C Unavailable Unavailabl e Petrancosta, Kossuth Vilma PA-C Unavailable Unavailabl e Petrancosta, Kossuth Vilma PA-C Unavailable Unavailabl e Petrancosta, Kossuth Vilma PA-C Unavailable Unavailabl e Petrancosta, Kossuth Vilma PA-C Unavailable Unavailabl e Petrancosta, Kossuth Vilma PA-C Unavailable Unavailabl e Petrancosta, Kossuth Vilma PA-C Unavailable Unavailabl e Petrancosta, Kossuth Vilma PA-C Unavailable Unavailabl e Petrancosta, Kossuth Vilma PA-C Unavailable Unavailabl e Petrancosta, Kossuth Vilma PA-C Unavailable Unavailabl e Petrancosta, Kossuth Vilma PA-C Unavailable Unavailabl e Petrancosta, Kossuth Vilma PA-C Unavailable Unavailabl e Petrancosta, Kossuth Vilma PA-C Unavailable Unavailabl e Petrancosta, Kossuth Vilma PA-C Unavailable Unavailabl e Petrancosta, Kossuth Vilma PA-C Unavailable Unavailabl e Petrancosta, Kossuth Vilma PA-C Unavailable Unavailabl e LETTIERE, A [...] Unavailable ARZATE, L ZEFERINO BONE Unavailable Unavailable ARZTAE, L ZEFERINO BONE Unavailable Unavailable ARZATE, L [...] L ZEFERINO BONE Unavailable Unavailable Pleskach, Kaylee SPUN PASTE MACHINE OPERATOR Unavailable Unavailable Pleskach, Kaylee SPUN PASTE MACHINE OPERATOR Unavailable Unavailable Pleskach, Kaylee SPUN PASTE MACHINE OPERATOR Unavailable Unavailable Pleskach, Kaylee SPUN PASTE MACHINE OPERATOR Unavailable Unavailable Pleskach, Kaylee SPUN PASTE MACHINE OPERATOR Unavailable Unavailable Pleskach, Kaylee SPUN PASTE MACHINE OPERATOR Unavailable Unavailable Pleskach, Kaylee SPUN PASTE MACHINE OPERATOR Unavailable Unavailable Pleskach, Kaylee SPUN PASTE MACHINE OPERATOR Unavailable Unavailable Pleskach, Kaylee SPUN PASTE MACHINE OPERATOR Unavailable Unavailable Pleskach, Kaylee SPUN PASTE MACHINE OPERATOR Unavailable Unavailable Pleskach, Kaylee SPUN PASTE MACHINE OPERATOR Unavailable Unavailable Pleskach, Kaylee SPUN PASTE MACHINE OPERATOR Unavailable Unavailable Pleskach, Kaylee SPUN PASTE MACHINE OPERATOR Unavailable Unavailable Pleskach, Kaylee SPUN PASTE MACHINE OPERATOR Unavailable Unavailable Pleskach, Kaylee SPUN PASTE MACHINE OPERATOR Unavailable Unavailable Pleskach, Kaylee SPUN PASTE MACHINE OPERATOR Unavailable Unavailable Pleskach, Kaylee SPUN PASTE MACHINE OPERATOR Unavailable Unavailable Pleskach, Kaylee SPUN PASTE MACHINE OPERATOR Unavailable Unavailable Pleskach, Kaylee SPUN PASTE MACHINE OPERATOR Unavailable Unavailable Pleskach, Kaylee SPUN PASTE MACHINE OPERATOR Unavailable Unavailable Pleskach, Kaylee SPUN PASTE MACHINE OPERATOR Unavailable Unavailable Pleskach, Kaylee SPUN PASTE MACHINE OPERATOR Unavailable Unavailable Pleskach, Kaylee SPUN PASTE MACHINE OPERATOR Unavailable Unavailable Pleskach, Kaylee SPUN PASTE MACHINE OPERATOR Unavailable Unavailable Pleskach, Kaylee SPUN PASTE MACHINE OPERATOR Unavailable Unavailable Pleskach, Kaylee SPUN PASTE MACHINE OPERATOR Unavailable Unavailable Pleskach, Kaylee SPUN PASTE MACHINE OPERATOR Unavailable Unavailable Pleskach, Kaylee SPUN PASTE MACHINE OPERATOR Unavailable Unavailable Pleskach, Kaylee SPUN PASTE MACHINE OPERATOR Unavailable Unavailable Pleskach, Kaylee SPUN PASTE MACHINE OPERATOR Unavailable Unavailable Pleskach, Kaylee SPUN PASTE MACHINE OPERATOR Unavailable Unavailable Pleskach, Kaylee SPUN PASTE MACHINE OPERATOR Unavailable Unavailable Pleskach, Kaylee SPUN PASTE MACHINE OPERATOR Unavailable Unavailable Pleskach, Kaylee SPUN PASTE MACHINE OPERATOR Unavailable Unavailable Pleskach, Kaylee SPUN PASTE MACHINE OPERATOR Unavailable Unavailable Pleskach, Kaylee SPUN PASTE MACHINE OPERATOR Unavailable Unavailable Pleskach, Kaylee SPUN PASTE MACHINE OPERATOR Unavailable Unavailable Pleskach, Kaylee SPUN PASTE MACHINE OPERATOR Unavailable Unavailable Pleskach, Kaylee SPUN PASTE MACHINE OPERATOR Unavailable Unavailable Pleskach, Kaylee SPUN PASTE MACHINE OPERATOR Unavailable Unavailable Pleskach, Kaylee SPUN PASTE MACHINE OPERATOR Unavailable Unavailable Pleskach, Kaylee SPUN PASTE MACHINE OPERATOR Unavailable Unavailable Pleskach, Kaylee SPUN PASTE MACHINE OPERATOR Unavailable Unavailable Pleskach, Kaylee SPUN PASTE MACHINE OPERATOR Unavailable Unavailable Re-disclosure Warning The records that [...] is protected by Article 27-F of the [facility] Public Health law. If you continue you may have access to information: Regarding HIV / AIDS; Provided by facilities licensed or operated by the [facility] Office of Mental Health; or Provided by the [facility] Office for People With Developmental Disabilities. If such information is present, then the following [facility] mandated warning applies: This information has been [...] law may result in a fine or longterm sentence or both. A general authorization for the release of medical or other information is NOT sufficient authorization for further disc losure. Allergies and Adverse Reactions Type Description Substance Reaction Status Data Source(s ) Allergy to substance Allergy to substance Allergy to substance [facility] ([facility]) Allergy to substance Allergy to substance Allergy to substance [facility] ([facility]) Family History Family Member Name Family Member Gender Family Member Status Date o f Status Description Data Source(s) Unknown Unknown Problem [facility] Unknown Unknown Problem [facility] ([facility]) father,pgf Encounters Encounter Providers Location Date Indications Data Source(s ) Outpatient Attender: Kaylee Earl [facility] Main Office 03/29/2021 1 1:30:00 AM EDT [facility] ([facility] Outpatient Attender: Kaylee Earl [facility] Main Office 01/15/2021 1 1:15:00 AM EDT MED[facility] ([facility] Outpatient Attender: Kaylee Earl [facility] Main Office 12/20/2020 0 3:45:00 PM EDT MED[facility] ([facility] Juanjose Mc MD: [address] [place] [address] [phone], Ph. 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 Attender: Juanjose Mc MD [facility] Medical 08/30/2020 12:00:00 AM EST [facility] ([facility]) Juanjose Mc MD: [address] [place] [address] [phone], Ph. Attender: Juanjose Mc MD [facility] Medical 08/30/2020 12:00:00 AM EST [facility] ([facility]) Outpatient Attender: Vilma Grubbs PA-C Main Office 08/20/2020 12:45:00 PM EST MED[facility] ([facility] Outpatient Attender: Vilma Grubbs PA-C Main Office 08/02/2020 01:30:00 PM EST [facility] ([facility] Outpatient Attender: HEAVENLY baker 07/31/2020 02:20:00 PM EST MED[facility] ([facility]) Outpatient Attender: Kaylee Earl [facility] Main Office 07/31/2020 1 2:45:00 PM EST [facility] ([facility] Outpatient Attender: Vilma Grubbs PA-C Main Office 05/14/2020 01:00:00 PM EST [facility] ([facility] Immunizations Vaccine Date Status Description Data Source(s) COVID-19, mRNA, LNP-S, PF, 100 mcg/0.5 mL dose 11/02/2020 08 :50:46 AM EDT completed .5 mL [facility] ([facility]) COVID-19 VACCINE Moderna 11/02/2020 12:00:00 AM EDT completed NYSIIS Vaccine Series Complete: YESThis Data wa s Submitted to [facility] Via [employer] COVID-19, mRNA, LNP-S, PF, 100 mcg/0.5 mL dose 08/30/2020 02 :32:33 PM EST completed .5 mL [facility] ([facility]) COVID-19, mRNA, LNP-S, PF, 100 mcg/0.5 mL dose 08/30/2020 02 :32:33 PM EST completed .5 mL [facility] ([facility]) COVID-19 VACCINE Moderna 08/30/2020 12:00:00 AM EST completed [facility] Vaccine Series Complete: NOThis Data was Submitted to [facility] [employer] Moderna Sars-(Covid-19) vaccine, mRNA, LNP-S, PF, 100 [...] active MEDENT ([facility]) 1 mg 05/14/2020 12:00:00 AM EST tablet 90 TAKE ONE TABLET BY MOUTH AT BEDTIME TAKE ONE TABLET BY MOUTH AT BEDTIME SOLD: 05/18/2020 [employer] ropinirole 1 MG Oral Tablet Ropinirole HCL 05/14/2020 12:00:00 AM EST ORAL completed [facility] ([facility] 2 mg 04/20/2020 12:00:00 AM EDT capsule,extended releas e 24hr 90 TAKE ONE CAPSULE BY MOUTH EVERY DAY TAKE ONE CAPSULE BY MOUTH EVERY DAY SOLD: 04/21/2020 [facility] 2 mg 04/19/2020 12:00:00 AM EDT [...] type / Coverage type Policy ID Covered democrat ID Covered democrat's relationship to estes Policy Estes Plan Information Medicare Natl Gov't Servi Medicare Primary [id number] Self [id number] MCRB [id number] S [id number] A MEDICARE [id number] S [id number] A SELF PAY ONLY [id number] [facility] [id number] S [id number] MEDICARE [id number] S [id number] ANSI-Commercial [id number] ANSI-Medicare Part B [id number] ANSI-Medicare Part B [id number] ANSI-Commercial [id number] ANSI-Commercial [id number] ANSI-Medicare Part B [id number] [place] Medicare Primary [id number] Self [id number] [facility] OPTIONS [id number] SP [id number] MEDICARE [id number] SP [id number] A [place] Medicare Primary [id number] Self [id number] [facility] [id number] 18 [id number] [facility] [id number] 18 [id number] MEDICARE -O/P [id number] 18 [id number] [facility] [id number] 18 [id number] [facility] [id number] 18 [id number] MEDICARE -CLINIC [id number] 18 11 [id number] -O/P [id number] 18 [id number]/P [id number] 18 [id number] [facility] HE[facility] CARE OPTIONS -CLINIC [id number] PROGRAM [id number] S [id number] [facility] HEALTH CARE OPTIONS -O/P [id number] 18 [id number] MEDICARE -PHYSICIAN [id number] 18 [id number] [facility] -PHYSICIAN [id number] 18 [id number] [facility] OFFICE OF COMMUNITY CARE [id number] SP [id number] A MEDICARE [id number] SP [id number] [facility] [id number] SP [id number] Problems, Conditions, and Diagnoses No Information [...] [facility] Results ID Date Data Source [id number] 12/20/2020 03:57:00 PM EDT [facility] ([facility] [...] [facility] ID Date Data Source [id number] 10/31/2020 03:55:00 PM EDT [facility] ([facility] Name Value Range Interpretation Code Description Data Carmita rce(s) Supporting Document(s) Laboratory test finding (navigational concept) 147 IU/L 39-117 [facility] ([facility] Please note reference interval change* * Laboratory test finding (navigational concept) 34 % 18-85 [facility] ([facility] Laboratory test finding (navigational concept) 62 % 14-68 [facility] ([facility] Laboratory test finding (navigational concept) 4 % 0-18 [facility] ([facility] Performed at: - [facility] [address] [id number] Process Safety Engineering Technologist: Renetta Rodríguez MD, Phone: [phone] Performed at: [facility] [address] [id number] Process Safety Engineering Technologist: Leodan Canales MD, Phone: [phone] ID Date Data Source [id number] 10/17/2020 09:11:00 AM EDT [facility] ([facility] Name Value Range Interpretation Code Description Data Carmita rce(s) Supporting Document(s) Cholesterol Level 173 mg/dL [facility] ([facility] Triglycerides Level 72 mg/dL [facility] ([facility] LDL Cholesterol 75 mg/dL [facility] ([facility] HDL Cholesterol 84 mg/dL [facility] ([facility] Non-HDL-C 89 mg/dL [facility] ([facility] Cholesterol Risk Ratio 2.059 [facility] ([facility] ID Date Data Source [id number] 10/17/2020 09:11:00 AM EDT [facility] ([facility] Name Value Range Interpretation Code [...] Little GFR Left</content>
<content>ESRD GFR <15 on SUPPORT DIRECTOR</content>
<content></content> Sodium Level 142 meq/L 136-145 [...] stevens [facility] ID Date Data Source [id number] 09/26/2020 08:59:00 AM EDT MED[facility] ([facility] [...] FOR ESBL</content>
<content></content> ID Date Data Source [id number] 09/26/2020 08:59:00 AM EDT [facility] ([facility] Name Value Range Interpretation Code Description Data Carmita rce(s) Supporting Document(s) Color, Urine Laboratory test result [facility] ([facility] Appearance, Urine Laboratory test result [facility] ([facility] PH,Urine 5.0 units 5.0-9.0 [facility] ([facility] [place] Urine Auto 1.005 1.002-1.035 [facility] ([facility]uez [...] [facility] ID Date Data Source [id number] 07/31/2020 12:00:00 AM EST [facility] Name Value Range Interpretation Code Description Data Carmita rce(s) Supporting Document(s) SARS-CoV2 Rapid Antigen Negative [facility] This lab was reported by [facility]. ID Date Data Source [id number] 05/30/2020 12:00:00 AM EST [facility] Name Value Range Interpretation Code Description Data Carmita rce(s) Supporting Document(s) 2019-nCoV RNA XXX NADEEN+probe-Imp [facility] This lab was ordered by [facility] and reported by [employer]. Procedure Social History Code Duration Value Status Description Data Source(s ) Smoking 12/20/2020 12:00:00 AM EDT Patient has never smoked co mpleted Patient has never smoked [facility] ([facility] Smoking 10/15/2020 12:00:00 AM EDT Never Smoked Cigarettes com pleted Never Smoked Cigarettes MED[facility] (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) Smoking 07/31/2020 12:00:00 AM EST Patient has never smoked co mpleted Patient has never smoked [facility] ([facility]) Vital Signs ID Date Data Source UNK Name Value Range Interpretation Code Description Data Source(s) Body temperature 97.1 [degF] 97.1 [degF] [facility] ([facility] Heart rate 80 /min 80 /min [facility] ([facility] Diastolic blood [...] 99 % [facility] ([facility] [place] body weight 115 [lb_av] 115 [lb_av] MEDEN T ([facility] Body mass index (BMI) [Ratio] 30.1 kg/m2 30.1 k g/m2 [facility] ([facility] Systolic blood pressure 124 mm[Hg] 124 mm[Hg] M EDENT ([facility]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) Diastolic blood pressure 62 mm[Hg] 62 mm[Hg] [facility] ([facility]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) Body height 62.75 [in_i] 62.75 [in_i] MED[facility] ([facility]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) 5'2.75" Body weight 172.00 [lb_av] 172.00 [lb_av] MEDEN T ([facility] [facility]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) Body mass index (BMI) [Ratio] 30.7 kg/m2 30.7 k g/m2 [facility] (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) Body surface area Derived from formula 1.81 m2 1.81 m2 [facility] (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) Diastolic blood pressure 60 mm[Hg] 60 mm[Hg] [facility] ([facility] Systolic blood pressure 127 mm[Hg] 127 mm[Hg] M EDENT ([facility] Heart rate 81 /min 81 /min [facility] ([facility] Body temperature 97.1 [degF] 97.1 [degF] [facility] ([facility] Respiratory rate 15 /min 15 /min [facility] ( [facility] Body height 63.50 [in_i] 63.50 [in_i] [facility] ([facility] 5'3.50" Body weight 174.50 [lb_av] 174.50 [lb_av] MEDEN T ([facility] Oxygen saturation in Arterial blood by Pulse oximetry 99 % 99 % [facility] ([facility] [place] body weight 115 [lb_av] 115 [lb_av] MEDEN T ([facility] Body mass index (BMI) [Ratio] 30.4 kg/m2 30.4 k g/m2 [facility] ([facility] Systolic blood pressure 113 mm[Hg] 113 mm[Hg] [facility] ([facility]) Diastolic blood pressure 73 mm[Hg] 73 mm[Hg] [facility] ([facility]) Heart rate 87 /min 87 /min [facility] ([facility]) Respiratory rate 14 /min 14 /min [facility] ( [facility]) Oxygen saturation in Arterial blood by Pulse oximetry 96 % 96 % [facility] ([facility]) Body temperature 98.4 [degF] 98.4 [degF] [facility] Body weight 167.00 [lb_av] 167.00 [lb_av] MEDEN T ([facility]) Body height 64 [in_i] 64 [in_i] [facility] 5'4" Body mass index (BMI) [Ratio] 28.7 kg/m2 28.7 k g/m2 [facility]) [place] body weight 115 [lb_av] 115 [lb_av] [facility] T ([facility] Body mass index (BMI) [Ratio] 30.4 kg/m2 30.4 k g/m2 [facility] ([facility] Body weight 171.75 [lb_av] 171.75 [lb_av] MEDEN T ([facility] Systolic blood pressure 103 mm[Hg] 103 mm[Hg] M EDENT ([facility] Oxygen saturation in Arterial blood by Pulse oximetry 98 % 98 % [facility] ([facility] Body temperature 97.4 [degF] 97.4 [degF] [facility] ([facility] Body height 63 [in_i] 63 [in_i] [facility] ([facility] 5'3" Respiratory rate 16 /min 16 /min [facility] ( [facility] Diastolic blood pressure 73 mm[Hg] 73 mm[Hg] [facility] ([facility] Heart rate 82 /min 82 /min [facility] ([facility]
[2021-05-09] MEDS: NITROGLYCERIN 0.4 MG SUBL TABLET SL PRN ×2 (15:00→15:05)
[2021-05-09 15:26] LABS: ALBUMIN 3.2 GM/DL (3.2-5.2); BILIRUBIN,DIRECT 0.1 MG/DL (0.0-0.2); BILIRUBIN,TOTAL 0.3 MG/DL (0.2-1.0); CALCIUM LEVEL 8.9 MG/DL (8.8-10.2); CREATININE FOR GFR 1.2 MG/DL (0.55-1.30); FREE T4 1.03 NG/DL (0.76-1.46); GLOMERULAR FILTRATION RATE 47.4 (>45); POTASSIUM SERUM 4.2 MEQ/L (3.5-5.1); THYROID STIMULATING HORMONE 1.68 uIU/ML (0.358-3.740); TOTAL PROTEIN 6.4 GM/DL (6.4-8.2)
[2021-05-09 15:35] LABS: CK-MB VALUE MASS 1.1 NG/ML (<3.6); CPK CREATINE PHOSPHOKINASE 122 U/L (26-192); TROPONIN I < 0.02 NG/ML (< 0.10)
[2021-05-09] MEDS ORDERED: ISOVUE-370 76% 100ML VIAL As Ordered ONE (15:55)
--- NOTE | 2021-05-09 16:24 | REP ---
INDICATION: chest pain SOB COMPARISON: None. TECHNIQUE: Axial contrast enhanced images from the thoracic inlet to the upper abdomen using pulmonary embolus technique with multiplanar re-formations. 75 ml Isovue 370 intravenous contrast material administered without complication. This CT examination was performed using the following dose reduction techniques: Automated exposure control, adjustment of mA and/or kv according to the patient's size, and use of iterative reconstruction technique. FINDINGS: Satisfactory enhancement of the pulmonary vasculature is achieved and no filling defects are identified to suggest pulmonary embolus. Further evaluation of the mediastinum demonstrates normal thoracic aorta, heart and pericardium. The esophagus is distended and fluid-filled to the level of the gastroesophageal junction which demonstrates hiatal hernia and circumferential mucosal thickening followed by evidence for gastric bypass surgery. The bilateral lung bridges are well aerated and clear without consolidation pleural effusion or pneumothorax. Tracheobronchial tree is patent. No nodule or mass lesion is identified. No adenopathy noted. Surrounding musculoskeletal structures intact IMPRESSION: 1. No evidence for pulmonary embolus. 2. No acute mediastinal or pleural parenchymal process. 3. Fluid-filled distended esophagus to the gastroesophageal junction where hiatal hernia and mucosal thickening is noted. Correlation with physical examination is recommended. Nonemergent upper GI examination and or endoscopy may be warranted further investigation. <Electronically signed by Alberto Thomas > 05/09/21 [id number]
[2021-05-09 19:21] LABS: CK-MB VALUE MASS < 1.0 NG/ML (<3.6); CPK CREATINE PHOSPHOKINASE 108 U/L (26-192); MB/CK RELATIVE INDEX 0.93 (< OR =4); TROPONIN I < 0.02 NG/ML (< 0.10)
[2021-05-09 20:30] VITALS: BP 122/62
--- NOTE | 2021-05-10 10:21 | ED PDOC ---
Post-Departure Follow-Up radiology report faxed to duc Earl Sarah MD May 10, 2021 10:21
--- NOTE | 2021-05-11 07:57 | ECGEPIP ---
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
--- NOTE | 2021-05-11 08:00 | ECGEPIP ---
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
== END 2021-05-09 21:05 | disposition home or self-care (01) ==
LOC: M ED 12:34
DX: R07.9 Chest pain, unspecified (principal); I10 Essential (primary) hypertension; K21.9 Gastro-esophageal reflux disease without esophagitis; M79.7 Fibromyalgia; Z79.899 Other long term (current) drug therapy; Z88.5 Allergy status to narcotic agent
CPT/HCPCS: 71046; 71275; 80048; 80076; 82550; 82553; 83690; 84439; 84443; 84484; 85025; 85379; 93005; 93041; 94760; 99285; Q9967

== ENCOUNTER → 2021-05-22 | Outpatient (CLI) | payer MEDICARE, OTHER ==
[~2021-05-22] MED LIST changes: +AMOX500C; +CELE1CAP7 PO; +DULO1CAP4 PO; +ROPI2TAB3 PO
[2021-05-22 13:37] LABS: PERCENT SATURATION 6.4 % (13.2-45.0)
[2021-05-22 13:46] LABS: FOLATE 6.8 NG/ML (>5.4)
== END ==
LOC: M PLALAB 10:49
PROVIDERS: ATTEND Internal Medicine Cardiovascular Disease
DX: D64.9 Anemia, unspecified (principal)

== ENCOUNTER → 2021-07-18 | Outpatient (CLI) | payer MEDICARE, OTHER ==
[2021-07-18 15:22] LABS: BASO # 0.1 10^3/uL (0.0-0.2); BASO % 0.8 % (0.0-1.0); EOS # 0.2 10^3/uL (0.0-0.5); EOS % 3.2 % (0.0-3.0); HEMATOCRIT 38.5 % (36.0-47.0); LYMPH # 1.5 10^3/uL (1.5-5.0); LYMPH % 23.5 % (24.0-44.0); MEAN CORPUSCULAR HEMOGLOBIN 29.1 pg (27.0-33.0); MEAN CORPUSCULAR HGB CONC 31.2 g/dl (32.0-36.5); MEAN CORPUSCULAR VOLUME 93.2 fl (80.0-96.0); MONO # 0.5 10^3/uL (0.0-0.8); MONO % 8.1 % (2.0-8.0); NEUTROPHILS % 64.1 % (36.0-66.0); PLATELET COUNT, AUTOMATED 217 10^3/uL (150-450); RED BLOOD COUNT 4.13 10^6/uL (4.00-5.40); WHITE BLOOD COUNT 6.2 10^3/uL (4.0-10.0)
[2021-07-18 15:59] LABS: C REACTIVE PROTEIN QUANTITATIV < 0.30 MG/DL (0.00-0.30); ERYTHROCYTE SEDIMENTATION RATE 25 mm/hr (0-30); FREE T4 0.97 NG/DL (0.76-1.46); LDH LACTATE DEHYDROGENASE 190 U/L (84-246)
== END ==
LOC: M PLAIMG 13:47
PROVIDERS: ATTEND Nurse Practitioner Family
DX: R61 Generalized hyperhidrosis (principal)

== ENCOUNTER → 2024-03-09 | Outpatient (REF) | payer MEDICARE, OTHER ==
[~2024-03-09] MED LIST changes: -CELE1CAP7 PO; +CELE1CAP99 PO; -ROPI2TAB3 PO; +ROPI2TAB46 PO
[2024-03-09 19:02] LABS: AMORPHOUS SEDIMENT SMALL (NEGATIVE); APPEARANCE, URINE CLOUDY (CLEAR); BACTERIA, URINE AUTO NEGATIVE (NEGATIVE); BILIRUBIN, URINE AUTO 1+ (NEGATIVE); BLOOD, URINE BLOOD NEGATIVE (NEGATIVE); CALCIUM OXALATE CRYSTALS MODERATE; COLOR, URINE AMBER (YELLOW); GLUCOSE, URINE (UA) AUTO NEGATIVE (NEGATIVE); KETONE, URINE AUTO TRACE mg/dL (NEGATIVE); LEUKOCYTE ESTERASE, URINE AUTO NEGATIVE (NEGATIVE); MUCUS, URINE SMALL (NEGATIVE); NITRITE, URINE AUTO NEGATIVE (NEGATIVE); PROTEIN, URINE AUTO 1+ mg/dL (NEGATIVE); RBC, URINE AUTO 2 /HPF (0-3); SPECIFIC GRAVITY URINE AUTO 1.031 (1.002-1.035); SQUAMOUS EPITHELIAL CELL UR AU 1 /HPF (0-6); WBC, URINE AUTO 1 /HPF (0-3)
== END ==
LOC: M SMT 17:03
PROVIDERS: ATTEND Nurse Practitioner Family
DX: R32 Unspecified urinary incontinence (principal)